=== PATIENT | female | born 1980 | race Caucasian/White ===

== ENCOUNTER 2018-07-13 08:35 | Emergency (ER) | payer SELFPAY ==
[~2018-07-13] VITALS: Wt 95.8 kg
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
[2018-07-13] MEDS ORDERED: METR45GE3 TOP (12:00)
[2018-07-13] MEDS ORDERED: NAPR-688 PO (12:01)
[2018-07-13 12:25] VITALS: BP 120/84; PULSE 76; RESP 19
== END 2018-07-13 12:27 | disposition home or self-care (01) ==
LOC: FTE 08:35
DX: M79.671 Pain in right foot (principal); M79.672 Pain in left foot; R10.2 Pelvic and perineal pain
CPT/HCPCS: 81001; 81025; 87210; 87591; 99284

== ENCOUNTER 2018-08-05 08:02 | Emergency (ER) | payer MEDICAID ==
[~2018-08-05] VITALS: Ht 172.7 cm; Wt 100.0 kg
[~2018-08-05 08:02] MED LIST: METR45GE3 TOP; NAPR-688 PO
[2018-08-05 08:06] VITALS: Ht 172.7 cm; Wt 100.0 kg
[2018-08-05] MEDS ORDERED: KETOROLAC 30 MG INJ IV STA (08:41)
[2018-08-05] MEDS ORDERED: IBUP800T48 PO (10:44)
--- NOTE | 2018-08-05 10:49 | ERD ---
ER Documentation Chief Complaint Chief Complaint pt is bib self with c/o abd pain x 2 days , HPI This is a 38-year-old female who presents to the emergency room with 2 months of lower pelvic pain and discomfort with irregular dysfunctional uterine bleeding. Patient additionally complains of chronic bilateral knee pain that is unchanged today. She went to her [facility]PER[facility] who is arrange for outpatient ultrasound but was told that if she has persistent pain she should go to the emergency room. She denies fevers or chills, migratory pain, nausea vomiting or diarrhea. ROS All systems reviewed and are negative except as per history of present illness. Medications Home Meds Active Scripts Ibuprofen* (Motrin*) 800 Mg Tab, 800 MG PO Q6H PRN for PAIN AND OR ELEVATED TEMP, #30 TAB Prov:MISSAEL VELEZ MD 08/05/18 Naproxen* (Naproxen*) 500 Mg Tablet, 500 MG PO BID PRN for PAIN for 7 Days, #14 TAB Prov:DORIE MCLAUGHLIN NP 07/13/18 Metronidazole (Metronidazole Gel) 0.75% - 45 Gm Gel..gram., 1 APPLIC TOP BID for vaginal discharge infection for 7 Days, TUB Prov:DORIE MCLAUGHLIN NP 07/13/18 Allergies Allergies: Coded Allergies: No Known Drug Allergy (Verified Allergy, Mild, 07/06/07) PMhx/Soc History of Surgery: Yes (TUBAL LIGATION) Anesthesia Reaction: No Hx Neurological Disorder: No Hx Respiratory Disorders: No Hx Cardiac Disorders: No Hx Psychiatric Problems: No Hx Miscellaneous Medical Probl: No Hx Alcohol Use: No Hx Substance Use: No Hx Tobacco Use: No Smoking Status: Never smoker FmHx Family History: No diabetes Physical Exam Vitals Vital Signs Date Temp Pulse Resp B/P (MAP) Pulse Ox O2 O2 Flow FiO2 Time Delivery Rate 08/05/18 97.5 74 16 137/89 99 08:06 (105) Physical Exam General: Well developed, well nourished, no acute distress Head: Normocephalic, atraumatic. Eyes: Pupils equally reactive, EOM intact ENT: Moist mucous membranes Neck: Supple, no lymphadenopathy Respiratory: Lungs clear bilaterally, no distress Cardiovascular: RRR, no murmurs, rubs, or gallops Abdominal: Soft, non-tender, non-distended, no peritoneal signs : Deferred MSK: No edema, no unilateral swelling, 5/5 strength. Bilateral knees with mild crepitus but full active and passive range of motion without bony abnormalities. Neurologic: Alert and oriented, moving all extremities, normal speech, no focal weakness, no cerebellar signs Skin: No rash Psych: Normal mood Result Diagram: 08/05/18 0844 08/05/18 0844 Results 24 hrs Laboratory Tests Test 08/05/18 08:25 08/05/18 08:31 08/05/18 08:32 08/05/18 08:44 Urine Color YELLOW Urine Clarity SLIGHTLY CLOUDY Urine pH 5.0 Urine Specific 1.018 [place] Urine Ketones NEGATIVE mg/dL Urine Nitrite NEGATIVE mg/dL Urine Bilirubin NEGATIVE mg/dL Urine Urobilinogen NEGATIVE mg/dL Urine Leukocyte NEGATIVE Zohaib/ul Esterase Urine Microscopic 3 /HPF RBC Urine Microscopic 0 /HPF WBC Urine Squamous MODERATE /HPF Epithelial Cells Urine Hemoglobin NEGATIVE mg/dL Urine Glucose NEGATIVE mg/dL Urine Total NEGATIVE mg/dl Protein Bedside Urine pH 6.0 (LAB) Bedside Urine Negative Protein (LAB) Bedside Urine Negative Glucose (UA) Bedside Urine Negative Ketones (LAB) Bedside Urine Trace-intact Blood Bedside Urine Negative Nitrite (LAB) Bedside Urine Negative Leukocyte Esterase (L POC Beta HCG, NEGATIVE Qualitative White Blood Count 6.3 10^3/ul Red Blood Count 4.54 10^6/ul Hemoglobin 12.7 g/dl Hematocrit 38.4 % Mean Corpuscular 84.6 fl Volume Mean Corpuscular 28.0 pg Hemoglobin Mean Corpuscular 33.1 g/dl Hemoglobin Concent Red Cell 13.1 % Distribution Width Platelet Count 353 10^3/UL Mean Platelet 9.7 fl Volume Immature 0.300 % Granulocytes % Neutrophils % 55.9 % Lymphocytes % 31.0 % Monocytes % 7.7 % Eosinophils % 4.6 % Basophils % 0.5 % Nucleated Red 0.0 /100WBC Blood Cells % Immature 0.020 10^3/ul Granulocytes # Neutrophils # 3.5 10^3/ul Lymphocytes # 1.9 10^3/ul Monocytes # 0.5 10^3/ul Eosinophils # 0.3 10^3/ul Basophils # 0.0 10^3/ul Nucleated Red 0.0 10^3/ul Blood Cells # Sodium Level 138 mmol/L Potassium Level 4.2 mmol/L Chloride Level 105 mmol/L Carbon Dioxide 24 mmol/L Level Anion Gap 9 Blood Urea 10 mg/dl Nitrogen Creatinine 0.44 mg/dl Est Glomerular > 60 mL/min Filtrat Rate mL/min Glucose Level 103 mg/dl Calcium Level 9.3 mg/dl Total Bilirubin 0.6 mg/dl Direct Bilirubin 0.00 mg/dl Indirect Bilirubin 0.6 mg/dl Aspartate Amino 26 IU/L Transf (AST/SGOT) Alanine 25 IU/L Aminotransferase ( ALT/SGPT) Alkaline 78 IU/L Phosphatase Total Protein 8.3 g/dl Albumin 4.1 g/dl Globulin 4.20 g/dl Albumin/Globulin 0.97 Ratio Current Medications Medications Dose Sig/Obdulia Start Time Status Last (Trade) Ordered Route PRN Stop Time Admin Dose Reason Admin Ketorolac 30 mg ONCE STAT 08/05/18 DC 08/05/18 Tromethamine IV 08:41 08/05/18 08:52 (Toradol) 08:42 Procedures/MDM EKG, MONITORS, & DIAGNOSTIC IMAGING: Pelvic ultrasound: IMPRESSION: 1. Thickened endometrium with a heterogeneously hypoechoic lesion measuring 1.4 cm along the uterine endometrium with vascular flow. This may represent an endometrial polyp, although endometrial carcinoma and subendometrial fibroid are within the differential diagnosis. Gynecologic consultation is recommended. 2. Normal sonographic examination of the ovaries. RPTAT: BRIGITTE LAB INTERPRETATION: I reviewed the laboratory testing and it shows no evidence of acute process MEDICAL DECISION MAKING: Patient presents with 2 months of pelvic pain. Consider possible dysfunctional uterine bleeding, fibroids, ultrasound would be appropriate. No signs or symptoms concerning for acute appendicitis or diverticulitis given chronicity of symptoms. Low concern for acute ovarian process given similar reasoning. Bilateral knee pain is likely secondary patient's body habitus, is subacute and chronic without evidence of septic arthritis or acute fracture. NSAIDs, rest ice elevation and outpatient primary care follow-up recommended. ER COURSE: * Ultrasound imaging as documented above. Patient needs outpatient [facility] OPER[facility] follow-up for likely endometrial scope and biopsy. * Diagnostic imaging was printed out for her follow-up benefit. 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 Outpatient workup would be reasonable. CONSULTATION: None DISPOSITION PLAN: The patient does not have an identifiable emergent medical condition that warrants inpatient hospitalization at this time. The patient is deemed safe for discharge with outpatient follow-up. We discussed follow up with the patient's primary care doctor within 24 to 48 hours as needed. We also discussed return to the emergency room for worsening symptoms or worsening condition. Outpatient referral: [facility] Discharge Medications: Motrin Departure Diagnosis: Primary Impression: Pelvic pain Additional Impressions: Osteoarthritis of knees, bilateral Osteoarthritis type: unspecified Qualified Codes: M17.0 - Bilateral primary osteoarthritis of knee Dysfunctional uterine bleeding Condition: Stable Patient Instructions: Pelvic Pain, Unknown Cause Referrals: [facility] Usted se moore hecho un examen mdico de control que le indica que no est en redd condicin que requiera tratamiento urgente en el Departamento de Emergencia. Un estudio ms profundo y el tratamiento de kumar condicin pueden esperar sin ningn riesgo hasta que usted sea atendida/o en el consultorio de kumar mdico o redd clnica. Es responsabilidad suya arreglar redd carter para el seguimiento del margoth. MANEJO DE CONDICIONES NO URGENTES EN EL FUTURO 1) Si usted tiene un mdico de atencin primaria: Usted debera llamar a kumar mdico de atencin primaria antes de venir al departamento de emergencia. Despus de las horas de consultorio, kumar doctor o kumar asociado/a est disponible por telfono. El mdico o enfermero de mirella en el servicio telefnico puede asesorarle por soco medio para atender el problema, o margoth contrario se puede programar redd carter. 2) Si usted no tiene un mdico de atencin primaria: Llame al mdico o clnica de referencia que aparece abajo baldev las horas de consultorio para hacer redd carter para que le vean. CLINICAS: [facility] [phone] [facility] 159 [phone] [facility] [phone] [address] [facility] [phone] 7[address] [facility]. [place] [phone] 1169 [facility]. [phone] [facility] () Uschirag se moore hecho un examen mdico de control que le indica que no est en redd condicin que requiera tratamiento urgente en el Departamento de Emergencia. Un estudio ms profundo y el tratamiento de kumar condicin pueden esperar sin ningn riesgo hasta que usted sea atendida/o en el consultorio de kumar mdico o redd clnica. Es responsabilidad suya arreglar redd carter para el seguimiento del margoth. MANEJO DE CONDICIONES NO URGENTES EN EL FUTURO 1) Si usted tiene un mdico de atencin primaria: Usted debera llamar a kumar mdico de atencin primaria antes de venir al departamento de emergencia. Despus de las horas de consultorio, kumar doctor o kumar asociado/a est disponible por telfono. El mdico o enfermero de mirella en el servicio telefnico puede asesorarle por soco medio para atender el problema, o margoth contrario se puede programar redd carter. 2) Si usted no tiene un mdico de atencin primaria: Llame al mdico o condado institucions de referencia que aparece abajo baldev las horas de consultorio para hacer redd carter para que le vean. SI USTED NO PUEDE PAGAR PARA YOHANNES UN MEDICO puede ir a: [facility] [address] [place] [address] [facility] [address] [place] [address] [facility] [address] [place] [address] [facility] [address] [place] [address] [facility] CHL[facility]ITE OPER[place] [address] [facility] [address] [place] [address] OFFICE FAX , [place] [address] [place] [address] [address] HARRIS, [place] [address] [place] [address] DR ORDONEZ, [facility] [address] [facility], [address], [place] [address] [facility] [address] [place] [address] [facility] [address] [place] [address] [address] [facility] [address] [address] AGUILERA, JL [address], [place] [address] DR HUYNH, ANDRES [address] [facility]. [address], [place] [address] DR VAUGHN, FARID [address] [place], [place] [id number] Additional Instructions: Llame al doctor nombrado abajo (Referral Sources) MAANA y dorothy redd CARTER PARA DENTRO DE REDD SEMANA. Dgale a la secretaria que nosotros le instruimos hacer esta carter.Avise o llame si kumar condicin se empeora antes de la carter. MISSAEL VELEZ MD Aug 05, 2018 10:49
[2018-08-05 10:55] VITALS: BP 142/87; PULSE 72; RESP 16
== END 2018-08-05 10:55 | disposition home or self-care (01) ==
LOC: E/R 08:02
DX: M17.0 Bilateral primary osteoarthritis of knee (principal); N93.8 Other specified abnormal uterine and vaginal bleeding
CPT/HCPCS: 76830; 76856; 80053; 81001; 81003; 81025; 85025; J1885; 36415; 96372